=== PATIENT | male | born 1990 | race Asian ===

== ENCOUNTER 2017-04-18 18:31 | Emergency (ER) | payer OTHER ==
[~2017-04-18] VITALS: Ht 167.6 cm; Wt 60.0 kg
[2017-04-18 18:32] VITALS: BP 114/66; PULSE 56; RESP 16; TEMP 98; O2SAT 100
--- NOTE | 2017-04-18 19:01 | PD ---
HPI Chief Complaint: Laceration/Skin Injury Time Seen by Provider: 18:56 Travel History International Travel<30 days: No Contact w/Intl Traveler<30days: No Traveled to known affect area: No History of Present Illness HPI 26-year-old young man from [place] whose attending Suresh Pecos presents to emergency department with laceration to the distal third digit on the left hand from a serrated knife that he was washing in the sink. Patient has controlled the bleeding with skin glue and has placed ointment on the area. His concern is he has a little bit of numbness in the distal finger distal to the wound. He is up-to-date on his tetanus. He has no loss of function. Pain is minimal. He has no known drug allergies. [facility] Past Medical History Medical History: Denies Significant Hx Diminished Hearing: No Tetanus Vaccination: Unknown Influenza Vaccination: No ?: Not Past Surgical History Surgical History: No Previous Surgery Social History Alcohol Use: No Tobacco Use: No Substance Use: No Allergies-Medications (Allergen,Severity, Reaction): Coded Allergies: No Known Allergies (Unverified , 04/18/17) Reported Meds & Prescriptions Reported Meds & Active Scripts Active No Active Prescriptions or Reported Medications Review of Systems Except as stated in HPI: all other systems reviewed are Neg General / Constitutional: No: Fever Eyes: No: Visual changes HENT: No: Headaches Cardiovascular: No: Chest Pain or Discomfort Respiratory: No: Shortness of Breath Gastrointestinal: No: Abdominal Pain Genitourinary: No: Dysuria Musculoskeletal: No: Pain Skin: No Rash Neurologic: No: Weakness Psychiatric: No: Depression Endocrine: No: Polydipsia Hematologic/Lymphatic: No: Easy Bruising Physical Exam Narrative GENERAL: The patient is in no acute distress. SKIN: Warm and dry. Normal color. Normal turgor. Patient has a half centimeter superficial laceration to the distal left third digit just distal to the IP joint. It does not involve the nailbed. Bleeding is currently controlled with previous treatment. Patient states mild numbness distal to the wound on the lateral side of the third digit. HEAD: Atraumatic. Normocephalic. EYES: Pupils equal and round. No scleral icterus. No injection or drainage. ENT: No nasal bleeding or discharge. Mucous membranes pink and moist. Pharynx is clear. NECK: Trachea midline. Supple CARDIOVASCULAR: Regular rate and rhythm. RESPIRATORY: No accessory muscle use. MUSCULOSKELETAL: Extremities without clubbing, cyanosis, or edema. No obvious deformities. Range of motion is full and equal bilaterally. Shipping Lead strength is normal. NEUROLOGICAL: Awake and alert. No obvious cranial nerve deficits. Motor grossly within normal limits. Five out of 5 muscle strength in the arms and legs. Normal speech. PSYCHIATRIC: Appropriate mood and affect; insight and judgment normal. Data Data Last Documented VS Vital Signs Date Time Temp Pulse Resp B/P Pulse Ox O2 Delivery O2 Flow Rate FiO2 04/18/17 18:32 98.0 56 16 114/66 100 MDM Medical Decision Making Medical Screen Exam Complete: Yes Emergency Medical Condition: Yes Differential Diagnosis Accidental laceration. Injury to the nerve. No need for closure. Tetanus up- to-date. Narrative Course Patient is medically stable at time of exam. Wound is appropriately closed by previous treatment prior to arrival. Bulky bandages placed and wound care is reviewed with the patient. Patient is to follow-up if any symptoms worsen as discussed. Diagnosis Primary Impression: Laceration of finger Qualified Code: S61.213A - Laceration of left middle finger, foreign body presence unspecified, nail damage status unspecified, initial encounter Referrals: Primary Care Physician Patient Instructions: Finger Laceration (ED), General Instructions, Laceration (GEN) Additional Instructions: Wound is appropriately closed by previous treatment prior to arrival. Bulky bandages placed and wound care is reviewed with the patient. Patient is to follow-up if any symptoms worsen as discussed. Med/Other Pt SpecificInfo: No Meds Exist/No RX given, Wound Care Scripts No Active Prescriptions or Reported Meds Disposition: 01 DISCHARGE HOME Condition: Stable Ced Stanford Apr 18, 2017 19:01
== END 2017-04-19 03:42 | disposition home or self-care (01) ==
LOC: NEPK 18:31
DX: S61.213A Laceration without foreign body of left middle finger without damage to nail, initial encounter (principal); R20.0 Anesthesia of skin; W26.0XXA Contact with knife, initial encounter; Y93.G1 Activity, food preparation and clean up; Y92.9 Unspecified place or not applicable; Y99.8 Other external cause status
CPT/HCPCS: 99282